=== PATIENT | female | born 1960 | race African-American/Black ===

== ENCOUNTER → 2017-06-17 | Outpatient (CLI) | payer BC ==
[2014-11-27 11:32] VITALS: BP 136/71
[~2017-06-17] MED LIST: ASPI325T8 PO; CALC-112 PO; CANA100T PO; CARV25TA2 PO; CRESTOR40 MG PO; CYAN1TAB28 PO; CYCL5TAB PO; DAPA10TA PO; EZET10TA18 PO; FISH1CAP PO; FURO-69 PO; GABA-586 PO; GABA600T2 PO; HYDR-971 PO; INSU100I11 SQ; INSU100I30 SQ; INSU100V11 SUBCUT; INSU100V8 SQ; IOHEXOL 180 MG/ML 10 ML VIAL. ONE; ISOS30TA PO; LISI20TA PO; LORA10TA68 PO; NITR0.4T SL; POTA10TA12 PO; PROVENTIL HFA6.7 GM IH; SIMV40TA3 PO; methylPREDNISolone ACETATE 40 MG/ML VIAL. ONE; methylPREDNISolone ACETATE 80 MG/ML VIAL. ONE
--- NOTE | 2017-06-17 11:31 | PAIN ---
DATE OF SERVICE: 06/17/2017 DIAGNOSES: 1. Cervical radiculopathy with cervical degenerative disk disease. 2. Lumbar radiculopathy with lumbar degenerative disk disease and post-lumbar laminectomy syndrome. HISTORY OF PRESENT ILLNESS: The patient is a 57-year-old female who returns for followup, last seen 08/19/2016. The patient had undergone caudal epidural steroid injection at that time with very good results returning now with significant reports of pain in the base of the neck, right shoulder and upper extremity as well as in the low back and left leg. Main complaint was the right shoulder, right upper extremity with some radiation of pain into this region in the shoulder and arm on the right side. It is a 10 on a scale of 10 at its worse, average about a 10 and is about 9 on at its least. The patient reports it is worse with activity using a right upper extremity with repetitive motions, reaching over her head, driving a car, picking up items or carrying things with her right arm. The patient reports it is aching, sharp, tight, constant, can be unbearable and somewhat severe. It awakens her from sleep about every 4 hours, has to reposition or take pain medicine to get out of bed and get back to sleep in order to decrease the pain. The patient reports no loss of motor function, but significant fatigability with right upper extremity as well. PAST MEDICAL HISTORY: Significant for diabetes, hypertension, myocardial infarction, lupus, skin cancer with chemotherapy treatment. PREVIOUS SURGERIES: Include tubal ligation, aortic mass removed in 1996, previous cholecystectomy, left elbow surgery and lumbar laminectomy in 2006 at L5. CURRENT MEDICATION: Updated and well documented on the patient's chart. ALLERGIES: THE PATIENT IS ALLERGIC TO IBUPROFEN, WHICH CAUSED SWELLING. FAMILY HISTORY: Significant for diabetes, heart disease, asthma, and cancer as well as strokes. 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 She reports she does not smoke and does not drink alcohol. REVIEW OF SYSTEMS: Positive for those items mentioned in history of present illness. All systems reviewed and otherwise negative. It is complete, full and well documented on the patient's chart. PHYSICAL EXAMINATION: VITAL SIGNS: Today, the patient's blood pressure 160/98, pulse 99, respirations are 18, temperature is 98.2 degrees Fahrenheit, height is 5 feet 1 inch, weight is 216 pounds. GENERAL: The patient is awake, alert, oriented, appropriate, very pleasant demeanor. HEENT: Head shows normocephalic, atraumatic. Extraocular movements are intact and symmetrical. Oral cavity shows mucous membranes moist and pink. Dentition is intact. CHEST: Shows breath sounds clear to auscultation bilaterally. HEART: Shows S1 and S2 clear. ABDOMEN: Soft, obese, nontender, nondistended. No palpable organomegaly is noted, no rebound or guarding demonstrated. BACK: Shows spine grossly midline. Slight exaggeration of thoracic kyphosis and mild flattening of lumbar lordotic curvature. Well-healed surgical scar noted. Cervical lordotic curvature is normal in appearance with palpation. Paraspinous musculature shows tenderness in the inferior aspect of the cervical paraspinous muscles, somewhat more on the right than the left into the right lateral trapezius as well as the superior medial trapezius, but no tenderness on the left side. The patient has good rotational motion of cervical spine, both laterally as well as extension and flexion without significant increase in pain. EXTREMITIES: Upper extremities show deep tendon reflexes 2+ in the biceps and triceps tendons. Motor exam is strong with home manager strength rated at 5/5 as is biceps and triceps flexion. Peripheral pulses are 2+ bilaterally. Options were discussed with the patient and the patient's old chart was reviewed as her current medication regimen and updated. Current review of systems is updated today as well. We will proceed with a cervical epidural steroid injection with fluoroscopic guidance. Risks were again discussed including, but not limited to bleeding, infection, possibility of epidural hematoma and subsequent neurologic compromise, dural puncture, headaches, spinal cord and/or nerve damage, side effects of steroid medication and poor results regarding pain control. The patient understands and wishes to proceed. The patient will return to clinic in approximately 2 weeks, was counseled as to activity level as well as side effects to be aware of. DIAGNOSES: Cervical radiculopathy with cervical degenerative disk disease. PROCEDURE: Cervical epidural steroid injection, translaminar approach at C6-C7 level using C-arm fluoroscopic guidance under sterile prep and drape using local anesthetic. MEDICATION INJECTED: A total of 120 mg of Depo-Medrol plus 5 mL of preservative-free normal saline and 2 mL of Isovue for contrast. CONDITION AT DISCHARGE: Stable. The patient tolerated procedure well, had no complications. THO LLOYD MD DR: Komal JOB#: [id number] / [id number]
== END | disposition home or self-care (01) ==
LOC: PNCL 07:58
PROVIDERS: ATTEND Anesthesiology
DX: M51.16 Intervertebral disc disorders with radiculopathy, lumbar region (principal); M96.1 Postlaminectomy syndrome, not elsewhere classified; M50.323 Other cervical disc degeneration at C6-C7 level; E11.9 Type 2 diabetes mellitus without complications; I25.2 Old myocardial infarction; I11.0 Hypertensive heart disease with heart failure; I50.9 Heart failure, unspecified; G47.30 Sleep apnea, unspecified; Z98.51 Tubal ligation status; Z90.49 Acquired absence of other specified parts of digestive tract; Z88.6 Allergy status to analgesic agent; Z87.39 Personal history of other diseases of the musculoskeletal system and connective tissue
CPT/HCPCS: 62321; J1030; J1040

== ENCOUNTER → 2017-07-03 | Outpatient (CLI) | payer BC ==
[2014-11-27 11:32] VITALS: BP 136/71
--- NOTE | 2017-07-03 08:55 | PAIN ---
DATE OF SERVICE: 07/03/2017 PROGRESS NOTE FOR PAIN CLINIC DIAGNOSES: 1. Cervical radiculopathy with cervical degenerative disk disease. 2. Lumbar radiculopathy with lumbar degenerative disk disease and lumbar post-laminectomy syndrome. HISTORY OF PRESENT ILLNESS: The patient is a 57-year-old female who returns for followup status post cervical epidural steroid injection x 1. The patient reports about 50% improvement overall in the neck and the right shoulder and upper extremity pain. The patient reports still some pain in the base of the neck and shoulder and also has pain in the low back and radiating to the left leg, but this is secondary. The patient reports pain in her neck is much better. She has increased activity with greater ease and comfort, but the pain is returning now over the past few days in the right shoulder and arm. The patient reports it as a 9 on a scale of 9 at its worst, 9 on average, is 7 at its best and is 7 today. The patient reports no new motor or sensory deficits. No new bowel or bladder incontinence. Reports it does not awaken her from sleep. She feels much better with lying down or resting or sitting. The patient reports the pain is constant, stabbing, aching, sharp and can be on and off in the lower leg on the left side. PHYSICAL EXAMINATION: VITAL SIGNS: Today, the patient's blood pressure is 173/90, pulse 82, respirations 18, temperature is 98.1 degrees Fahrenheit. Height is 5 feet 1 inch and weight is 213 pounds. GENERAL: The patient is awake, alert, oriented, appropriate and very pleasant demeanor. HEENT: Shows normocephalic and atraumatic. Extraocular movements are intact, symmetrical. Oral cavity, mucous membranes are moist and pink. Dentition is intact. NECK: Shows anterior throat supple without palpable lymphadenopathy noted. Swallow reflex is symmetrical. CHEST: Shows normal on inspection. Breath sounds clear to auscultation bilaterally. HEART: Shows S1 and S2 clear. ABDOMEN: Soft, nontender and nondistended. No palpable organomegaly. No rebound or guarding demonstrated. BACK: The patient's back shows spine grossly in midline with a normal-appearing thoracic kyphosis and lumbar lordotic curvature. Cervical lordotic curvature also normal in appearance. Cervical paraspinous musculature shows some moderate tenderness to palpation but only diffusely bilaterally with rotation shows good rotation past 45 degrees, right and left lateral as well as extension and full flexion without significant limitation or pain reported. EXTREMITIES: Upper extremities showed deep tendon reflexes 2+ in the biceps and triceps tendons. 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 Peripheral pulses are 2+ radial distribution. Options were discussed with the patient and the patient's old chart was reviewed as well as her current medication regimen updated. Current review of systems updated today as well. We will proceed with a second in series of cervical epidural steroid injection today with fluoroscopic guidance. Risks were again discussed including, but not limited to bleeding, infection, possibility of epidural hematoma, subsequent neurologic compromise, dural puncture, headaches, spinal cord and/or nerve damage, side effects of steroid medication and poor results regarding pain control. The patient understands and wishes to proceed. The patient will return to clinic in approximately 2 weeks for followup, was counseled on return appointment, activity level and side effects to be aware of. DIAGNOSIS: Cervical radiculopathy with cervical degenerative disk disease. PROCEDURE: Cervical epidural steroid injection in translaminar approach at C6-C7 level using C-arm fluoroscopic guidance under sterile prep and drape using local anesthetic. MEDICATION INJECTED: A total of 120 mg Depo-Medrol plus 5 mL of preservative-free normal saline and 2 mL of Isovue for contrast. CONDITION AT DISCHARGE: Stable. The patient tolerated procedure well, had no complications. THO LLOYD MD DR: LORETTA/jordon JOB#: [id number] / [id number]
== END | disposition home or self-care (01) ==
LOC: PNCL 07:30
PROVIDERS: ATTEND Anesthesiology
DX: M50.123 Cervical disc disorder at C6-C7 level with radiculopathy (principal); M51.16 Intervertebral disc disorders with radiculopathy, lumbar region; M96.1 Postlaminectomy syndrome, not elsewhere classified; I11.0 Hypertensive heart disease with heart failure; I50.9 Heart failure, unspecified; E11.9 Type 2 diabetes mellitus without complications; Z88.6 Allergy status to analgesic agent; Z86.69 Personal history of other diseases of the nervous system and sense organs; Z86.73 Personal history of transient ischemic attack (TIA), and cerebral infarction without residual deficits; Z90.49 Acquired absence of other specified parts of digestive tract; Z98.51 Tubal ligation status; Z87.39 Personal history of other diseases of the musculoskeletal system and connective tissue; Z86.39 Personal history of other endocrine, nutritional and metabolic disease
CPT/HCPCS: 62321; J1030; J1040

== ENCOUNTER → 2018-05-06 | Outpatient (CLI) | payer BC ==
[2014-11-27 11:32] VITALS: BP 136/71
[~2018-05-06] MED LIST changes: +ATORVASTATIN CA80 MG PO; +CLOB15OI3 TP; +ESTR30CR VG; +ISOS30TA19 PO; +LIDOCAINE 2% PF 2ML VIAL. ONE; +LOSA100T6 PO
--- NOTE | 2018-05-06 13:26 | PAIN ---
DATE OF SERVICE: 05/06/2018 DIAGNOSES: 1. Lumbar radiculopathy with lumbar degenerative disk disease and post-lumbar laminectomy syndrome. 2. Cervical radiculopathy with cervical degenerative disk disease. HISTORY OF PRESENT ILLNESS: The patient is a 57-year-old female who returns for followup, last seen 07/2017. The patient underwent cervical epidural steroid injection with very good results, about 70-80% improvement. The patient reports that since that time she is having increased pain and wishes she would come in sooner, but the pain has been most significant in the low back and bilateral lower extremities. Also, some pain in the base of the neck and right shoulder with radiating pain that is becoming more constant, but more significant and her chief complaint is low back, bilateral lower extremity pain, mostly in the posterior gluteus, posterior thighs, posterior calves, which alternates right and left being worse, but always present in both. The patient reports it is a 10 on a scale of 10 at its worst, 10 on average, 6 at its least and is a 10 today. The patient it is sharp, shooting, radiating, constant, becoming more unbearable. The patient reports it wakes her from sleep about every 4 hours or so, she has to get out of bed or take pain medication to get back to sleep. The patient reports no new motor or sensory deficits, no new bowel or bladder incontinence. Also, some pain in the neck and shoulder in the right arm, but much less compared to the low back and legs. PHYSICAL EXAMINATION: VITAL SIGNS: Show blood pressure is 172/103, pulse 96, respirations 18, temperature 98.1 degrees Fahrenheit. Height is 5 feet 1 inch, weight is 217 pounds. GENERAL: The patient is awake, alert, oriented, appropriate, very pleasant demeanor. HEENT: Head is normocephalic, atraumatic. Extraocular movements are intact and symmetrical. Oral cavity: Mucous membranes moist and pink. Dentition is intact. NECK: Shows anterior throat supple without palpable lymphadenopathy noted. Swallow reflex symmetrical. CHEST: Shows normal with inspection. Breath sounds clear to auscultation bilaterally. HEART: Shows S1, S2 clear. No murmurs auscultated. ABDOMEN: Obese, soft, nontender, nondistended. No palpable organomegaly is noted. No rebound or guarding demonstrated. BACK: Shows spine grossly in the midline. Slight increase in thoracic kyphosis and flattening of lordotic curvature with well-healed surgical scar noted in the lumbar distribution. Lumbar paraspinous muscle shows symmetrical on inspection, with palpation shows some moderate tenderness to palpation but only diffusely without significant radiation. The patient has good rotational motion of lumbar spine, both laterally as well as extension and flexion without significant difficulty as well. EXTREMITIES: Lower extremities show deep tendon reflexes at 1+ in the patellar and tendo calcaneus tendons. Motor exam is strong, 4 on a scale of 5, but equal and symmetrical dorsiflexion, extension, quadriceps and hamstring flexion. Peripheral pulses are 1+ posterior tibia. No peripheral edema is noted bilaterally. Options were discussed with the patient. The patient's old chart was reviewed as her current medication regimen updated. Current review of systems is updated today as well. We will proceed with a caudal approach epidural steroid injection today with fluoroscopic guidance. Risks were again discussed including, but not limited to bleeding, infection, possibility of epidural hematoma, subsequent neurologic compromise, dural puncture headaches, spinal cord and/or nerve damage, side effects of steroid medication and poor results regarding pain control. The patient understands and wished to proceed. The patient will return to clinic in approximately 2 weeks for followup. She was counseled as to return appointment, activity level and side effects to be aware of. DIAGNOSES: Lumbar radiculopathy with lumbar degenerative disk disease, post-lumbar laminectomy syndrome. PROCEDURE: Lumbar epidural steroid injection, caudal approach under sterile prep and drape using local anesthetic. MEDICATION INJECTED: A total of 120 mg Depo-Medrol plus 10 mL of preservative-free normal saline and 2 mL of Isovue for contrast. CONDITION AT DISCHARGE: Stable. The patient tolerated the procedure well, had no complications. THO LLOYD MD DR: LORETTA/jordon JOB#: [id number] / [id number]
== END | disposition home or self-care (01) ==
LOC: PNCL 08:22
PROVIDERS: ATTEND Anesthesiology
DX: M51.16 Intervertebral disc disorders with radiculopathy, lumbar region (principal); M96.1 Postlaminectomy syndrome, not elsewhere classified; M50.10 Cervical disc disorder with radiculopathy, unspecified cervical region; Z88.8 Allergy status to other drugs, medicaments and biological substances
CPT/HCPCS: 62323; J1030; J1040; J2001; Q9965

== ENCOUNTER → 2018-05-25 | Outpatient (CLI) | payer BC ==
[2014-11-27 11:32] VITALS: BP 136/71
[~2018-05-25] MED LIST changes: -LOSA100T6 PO; +LOSA100T7 PO
--- NOTE | 2018-05-25 11:59 | PAIN ---
DATE OF SERVICE: 05/25/2018 PROGRESS NOTE FOR PAIN CLINIC DIAGNOSES: 1. Lumbar radiculopathy with lumbar degenerative disk disease and lumbar post-laminectomy syndrome. 2. Cervical radiculopathy with cervical degenerative disk disease. HISTORY OF PRESENT ILLNESS: The patient is a 58-year-old female who returns for followup status post caudal epidural steroid injection x 1. The patient reports about 80% improvement in the low back and bilateral lower extremities. The patient reports her main complaint is neck and upper back pain. She has had some significant degenerative change in her cervical spine and has done well with a cervical epidurals in the past. The patient reports that her low back is doing much better but is in the upper back, mid back and shoulders that is most painful. The patient reports the pain in the neck and shoulders is a 10 on a scale of 10 at its worst, 8 on average, 6 at its least and is an 8 today. The patient reports it is sharp, shooting, on and off intensity, worse with activity using the upper extremities, sitting for prolonged periods. The patient reports it awakens her from sleep occasionally but not every night. The patient reports no new motor or sensory deficits and no new bowel or bladder incontinence. PHYSICAL EXAMINATION: VITAL SIGNS: The patient's blood pressure 154/87, pulse 88, respirations are 18, temperature is 98.2 degrees Fahrenheit, height is 5 feet 1 inch and weight is 217 pounds. GENERAL: The patient is awake, alert, oriented, appropriate and very pleasant demeanor. HEENT: Head shows normocephalic and atraumatic. Extraocular movements are intact and symmetrical. Oral cavity, mucous membranes are moist and pink. Dentition is intact. NECK: Shows anterior throat supple without palpable lymphadenopathy noted. Swallow reflex is symmetrical. CHEST: Shows normal on inspection. Breath sounds are clear to auscultation bilaterally. HEART: Shows S1 and S2 clear. No murmurs auscultated. ABDOMEN: Soft, nontender and nondistended. No palpable organomegaly is noted. No rebound or guarding demonstrated. BACK: Shows spine grossly in the midline. Normal appearing thoracic kyphosis and minor flattening of lumbar lordotic curvature with well-healed surgical lumbar scar. The patient's cervical paraspinous muscle shows symmetrical on inspection, on palpation shows some moderate tenderness bilaterally but only diffusely without radiation. The patient shows good rotational motion of the cervical spine with some minor guarding with extension, but not with forward flexion. Right and left lateral rotations performed past 45 degrees without significant difficulty. EXTREMITIES: The patient's upper extremities show deep tendon reflexes 2+ in the biceps, triceps tendons. 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 Peripheral pulses are 2+ in the radial distribution bilaterally. The patient's lower extremities show deep tendon reflexes are 1+ in the patellar tendon bilaterally. Motor exam is strong with 4 on a scale of 5 and equal and symmetrical dorsiflexion, extension with 1+ peripheral pulses and no edema as well. Options were discussed with the patient. The patient's old chart was reviewed as well as her current medication regimen updated. Current review of systems updated today as well. We will proceed with a cervical epidural steroid injection with fluoroscopic guidance today. Risks were again discussed including, but not limited to bleeding, infection, possibility of epidural hematoma, subsequent neurologic compromise, dural puncture, headaches, spinal cord and/or nerve damage, side effects of steroid medication and poor results regarding pain control. The patient understands and wished to proceed. The patient will return to the clinic in approximately 2 weeks for followup, was counseled to return appointment, activity level and side effects to be aware of. DIAGNOSIS: Cervical radiculopathy with cervical degenerative disk disease. PROCEDURE: Cervical epidural steroid injection, translaminar approach, C6-C7 level using C-arm fluoroscopic guidance under sterile prep and drape using local anesthetic. MEDICATION INJECTED: A total of 120 mg Depo-Medrol plus 10 mL of preservative-free normal saline and 2 mL of Isovue for contrast. CONDITION AT DISCHARGE: Stable. The patient tolerated the procedure well and had no complications. THO LLOYD MD DR: LORETTA/jordon JOB#: [id number] / [id number]
== END | disposition home or self-care (01) ==
LOC: PNCL 08:34
PROVIDERS: ATTEND Anesthesiology
DX: M50.123 Cervical disc disorder at C6-C7 level with radiculopathy (principal); M51.16 Intervertebral disc disorders with radiculopathy, lumbar region; M96.1 Postlaminectomy syndrome, not elsewhere classified; Z88.8 Allergy status to other drugs, medicaments and biological substances
CPT/HCPCS: 62321; J1030; J1040; J2001; Q9965

== ENCOUNTER → 2018-10-25 | Outpatient (CLI) | payer BC ==
[2014-11-27 11:32] VITALS: BP 136/71
[~2018-10-25] MED LIST changes: +ALBU2.5V8 IH; -GABA-586 PO; +GABA300C18 PO; -GABA600T2 PO; +GABA600T7 PO; +HYDR-3164 PO; -HYDR-971 PO; -LIDOCAINE 2% PF 2ML VIAL. ONE; +LOSA100T14 PO; -LOSA100T7 PO; -PROVENTIL HFA6.7 GM IH
--- NOTE | 2018-10-25 12:09 | PAIN ---
DATE OF SERVICE: 10/25/2018 PROGRESS NOTE FOR PAIN CLINIC DIAGNOSES: 1. Lumbar radiculopathy with lumbar degenerative disk disease and post-lumbar laminectomy syndrome. 2. Cervical radiculopathy with cervical degenerative disk disease. HISTORY OF PRESENT ILLNESS: The patient is a 58-year-old female who returns for followup status post lumbar caudal epidural steroid injections and cervical epidural steroid injection, last seen 05/25/2018. The patient did very well with about 80% improvement until the last month or so. The patient reports the pain began to return mostly in the neck and left shoulder and upper extremity. The patient reports some pain in the low back as well, but the pain in the back is better now. The main complaint is neck and left upper extremity. The patient reports it is radiating, constant, becoming more unbearable, more severe, sharp, shooting pain in the base of the neck, left shoulder posteriorly, posterior and anterior arm, throughout the upper and forearm into the wrist and hand with numbness and tingling in the fingers on the left side only. The patient reports no new injury or accident that she is aware of. The pain is a 10 on a scale of 10 at all times, average of at least and its worst is a 10 today. The patient reports it is awakening her from sleep about 2-3 times at night. She needs to reposition and get back to sleep. Initially, she was doing great with walking and work activities, household activity, traveling for several months after last injection. The pain returned about a month ago. The patient reports no new motor or sensory deficits, no new changes. PHYSICAL EXAMINATION: VITAL SIGNS: The patient's blood pressure is 186/100, pulse 96, respirations 18, temperature 98.2 degrees Fahrenheit, height is 5 feet 1 inch, weight is 219 pounds. GENERAL: The patient is awake, alert, oriented, appropriate, very pleasant demeanor. HEENT: Head is normocephalic, atraumatic. Extraocular muscles are intact and symmetrical. Oral cavity, mucous membranes are moist and pink. Dentition is intact. NECK: Shows anterior throat supple without palpable lymphadenopathy noted. Swallow reflex is symmetrical. CHEST: Shows normal with inspection. Breath sounds clear to auscultation bilaterally. HEART: Shows S1, S2 clear. No murmurs auscultated. ABDOMEN: Soft, nontender, nondistended. No palpable organomegaly is noted. No rebound or guarding demonstrated. BACK: Shows spine grossly in the midline. Normal appearing thoracic kyphosis and lumbar lordotic curvature. Cervical paraspinous muscle shows symmetrical on inspection, on palpation shows some moderate tenderness with palpation, but only diffusely. The patient has good rotational motion of cervical spine, both laterally greater than 45 degrees closer to 90 degrees, right and left lateral as well as full extension, full forward flexion without significant difficulty or pain reported. EXTREMITIES: The patient's upper extremities show deep tendon reflexes 2+ in the biceps, triceps tendons. Motor exam is strong with clinical quality manager strength rated at 5/5 bilaterally. Peripheral pulses are 2+ in radial distribution. No peripheral edema is noted. Options were discussed with the patient. The patient's old chart was reviewed as her current medication regimen updated. Current review of systems updated today as well. We will proceed with a cervical epidural steroid injection today with fluoroscopic guidance. Risks were again discussed including, but not limited to bleeding, infection, possibility of epidural hematoma and subsequent neurological compromise, dural puncture, headaches, spinal cord and/or nerve damage, side effects of steroid medication and poor results regarding pain control. The patient understands and wished to proceed. The patient will return to clinic in approximately 2 weeks for followup, was counseled as to return appointment, activity level and side effects to be aware of. DIAGNOSES: Cervical radiculopathy with cervical degenerative disk disease. PROCEDURE: Cervical epidural steroid injection, translaminar approach at C6-C7 level using C-arm fluoroscopic guidance under sterile prep and drape using local anesthetic. MEDICATION INJECTED: A total of 120 mg Depo-Medrol plus 5 mL of preservative-free normal saline and 2 mL of Isovue for contrast. CONDITION AT DISCHARGE: Stable. The patient tolerated the procedure well, had no complications. THO LLOYD MD DR: LORETTA/jordon JOB#: [id number] / [id number]
== END | disposition home or self-care (01) ==
LOC: PNCL 08:17
PROVIDERS: ATTEND Anesthesiology
DX: M50.123 Cervical disc disorder at C6-C7 level with radiculopathy (principal); M51.16 Intervertebral disc disorders with radiculopathy, lumbar region; M96.1 Postlaminectomy syndrome, not elsewhere classified; Z88.8 Allergy status to other drugs, medicaments and biological substances
CPT/HCPCS: 62321; J1030; J1040; Q9965

== ENCOUNTER → 2018-11-08 | Outpatient (CLI) | payer BC ==
[2014-11-27 11:32] VITALS: BP 136/71
--- NOTE | 2018-11-09 02:21 | PAIN ---
DATE OF SERVICE: 11/08/2018 PROGRESS NOTE FOR PAIN CLINIC DIAGNOSES: 1. Lumbar radiculopathy with lumbar degenerative disk disease, post lumbar laminectomy syndrome. 2. Cervical radiculopathy with cervical degenerative disk disease. HISTORY OF PRESENT ILLNESS: The patient is a 58-year-old female who returns for followup status post cervical epidural steroid injection x 1 on 10/25/2018. The patient reports she did very well with this with approximately 60% improvement in the left shoulder and arm. The patient reports still pain in the base of the neck and shoulder and then into the forearm, also in the posterior side with numbness and tingling in the hand. The patient reports it is sharp, also alternating with aching and dull, radiating, becoming more constant, somewhat unbearable at times with repeated use, but again, did much better after the last injection and is still taking care of the pain to about 60% level as of this date. The patient reports no new motor or sensory deficits, no new bowel or bladder incontinence. The patient reports she is sleeping better at night, increasing her distance walking, doing better with work activities as well as household activities. The patient reports her pain is 8 on a scale of 10 at its worst, a 6 at its least, 8 on average and is an 8 today. PHYSICAL EXAMINATION: VITAL SIGNS: The patient's blood pressure is 180/111, pulse 99, respirations are 18, temperature is 98.1 degrees Fahrenheit. Height is 5 feet 1 inch, weight is 212 pounds. GENERAL: The patient is awake, alert, oriented, appropriate, very pleasant demeanor. HEENT: Head shows normocephalic, atraumatic. Extraocular movements are intact and symmetrical. Oral cavity, mucous membranes are moist and pink. Dentition is intact. NECK: Shows anterior throat supple without palpable lymphadenopathy noted. Swallow reflex symmetrical. CHEST: Shows normal with inspection. Breath sounds clear to auscultation bilaterally. HEART: Shows S1, S2 clear. No murmurs auscultated. ABDOMEN: Soft, nontender, nondistended. No palpable organomegaly is noted. There is no rebound or guarding demonstrated. BACK: Shows spine grossly in the midline, normal appearing cervical lordotic curvature and thoracic kyphotic curvature. Lumbar lordotic curvature is flattened with well-healed surgical scar noted. Cervical paraspinous muscle shows symmetrical on inspection, on palpation shows some moderate tenderness, but only diffusely with palpation and without radiation. The patient shows good rotational motion of the lumbar spine both laterally as well as extension and flexion without significant difficulty or pain reported. EXTREMITIES: The patient's upper extremities show deep tendon reflexes 2+ in the biceps and triceps tendons. 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 Peripheral pulses are 2+ radial. No peripheral edema is noted. Options were discussed with the patient. The patient's old chart was reviewed as her current medication regimen updated. Current review of systems updated today as well. We will proceed with second in the series of cervical epidural steroid injection today with fluoroscopic guidance. Risks were again discussed including, but not limited to, bleeding, infection, possibility of epidural hematoma, subsequent neurological compromise, dural puncture, headaches, spinal cord and/or nerve damage, side effects of steroid medication and poor results regarding pain control. The patient understands and wished to proceed. The patient to return to clinic in approximately 2 weeks for followup, was counseled on return appointment, activity level and side effects to be aware of. DIAGNOSES: 1. Lumbar radiculopathy with lumbar degenerative disk disease and lumbar post laminectomy syndrome. 2. Cervical radiculopathy with cervical degenerative disk disease. PROCEDURE: Cervical epidural steroid injection, translaminar approach at the C6-C7 level using C-arm fluoroscopic guidance under sterile prep and drape using local anesthetic. MEDICATION INJECTED: A total of 120 mg Depo-Medrol plus 5 mL of preservative-free normal saline and 2 mL of Isovue for contrast. CONDITION AT DISCHARGE: Stable. The patient tolerated the procedure well, had no complications. THO LLOYD MD DR: LORETTA/jordon JOB#: [id number] / [id number]
== END | disposition home or self-care (01) ==
LOC: PNCL 08:46
PROVIDERS: ATTEND Anesthesiology
DX: M50.123 Cervical disc disorder at C6-C7 level with radiculopathy (principal); M51.16 Intervertebral disc disorders with radiculopathy, lumbar region; M96.1 Postlaminectomy syndrome, not elsewhere classified; Z88.8 Allergy status to other drugs, medicaments and biological substances
CPT/HCPCS: 62321; J1030; J1040; Q9965

== ENCOUNTER → 2018-11-22 | Outpatient (CLI) | payer BC ==
[2014-11-27 11:32] VITALS: BP 136/71
--- NOTE | 2018-11-22 21:44 | PAIN ---
DATE OF SERVICE: 11/22/2018 DIAGNOSES: 1. Lumbar radiculopathy with lumbar degenerative disk disease and post laminectomy syndrome. 2. Cervical radiculopathy with cervical degenerative disk disease. HISTORY OF PRESENT ILLNESS: The patient is a 58-year-old female who returns for followup status post cervical epidural steroid injection x 1 on 11/08/2018. The patient reports she did very well, about 75% improvement, with still helping, but still has some pain in the left arm, mostly in the forearm. The patient reports the shoulder and upper neck and back have improved significantly, but the left forearm is still having some tingling and radiating pain in it. The patient reports it has been 9 on a scale of 10 at its worst, 7 on an average, 6 at its least and is 7 today. The patient reports it is radiating, tingling, on and off in intensity, but worse with repetitive motions of the left arm, lifting items, otherwise she did quite a bit better. The patient reports still some pain in the low back and left lower extremity as she has had before as well, but the pain in the arm is much worse. The patient reports it awakens her from sleep about every 4-5 hours. She has been increasing her activity with household activities and driving easier, but still some pain in the left arm. The patient reports no new motor or sensory deficits, no new changes. PHYSICAL EXAMINATION: VITAL SIGNS: The patient's blood pressure is 145/86, pulse 91, respirations 16, temperature 98.6 degrees Fahrenheit, height is 5 feet 1 inch, weight is 202 pounds. GENERAL: The patient is awake, alert, oriented, appropriate, very pleasant demeanor. HEENT: Head shows normocephalic, atraumatic. Extraocular muscles are intact and symmetrical. Oral cavity, mucous membranes are moist and pink. Dentition is intact. NECK: Shows anterior throat supple without palpable lymphadenopathy noted. Swallow reflex symmetrical. CHEST: Shows normal with inspection. Breath sounds clear to auscultation bilaterally. HEART: Shows S1, S2 clear. No murmurs auscultated. ABDOMEN: Soft, nontender, nondistended. No palpable organomegaly is noted. No rebound or guarding demonstrated. BACK: Shows spine grossly in the midline. Normal-appearing thoracic kyphosis and some slight flattening of lumbar lordotic curvature. Cervical paraspinous muscle shows symmetrical on inspection, with palpation shows some moderate tenderness diffusely bilaterally, but only diffusely without radiation into the inferior aspect of the cervical paraspinous muscles as well as superior medial trapezius more on the left than the right, but again without significant radiation. The patient has full rotational motion of cervical spine, both laterally as well as extension and flexion without significant difficulty. EXTREMITIES: The patient's upper extremities show deep tendon reflexes 2+ in the biceps and triceps tendons. Motor exam is 5/5 caser up strength, bicep and tricep flexion. Options were discussed with the patient. The patient's old chart was reviewed as was her current medication regimen updated. Current review of systems updated today as well. We will proceed with a second in this series of cervical epidural steroid injection today with fluoroscopic guidance. Risks were again discussed including, but not limited to bleeding, infection, possibility of epidural hematoma, subsequent neurological compromise, dural puncture, headaches, spinal cord and/or nerve damage, side effects of steroid medication and poor results regarding pain control. The patient understands and wished to proceed. The patient to return to clinic in approximately 2 weeks for followup, was counseled as to return appointment, activity level and side effects to be aware of. DIAGNOSES: Cervical radiculopathy with cervical degenerative disk disease. PROCEDURE: Cervical epidural steroid injection, translaminar approach C6-C7 level using C-arm fluoroscopic guidance under sterile prep and drape using local anesthetic. MEDICATION INJECTED: A total of 120 mg of Depo-Medrol plus 5 mL of 0.25% bupivacaine and 2 mL of isovue for contrast. CONDITION AT DISCHARGE: Stable. The patient tolerated the procedure well, had no complications. THO LLOYD MD DR: LORETTA/jordon JOB#: [id number] / [id number]
== END | disposition home or self-care (01) ==
LOC: PNCL 09:05
PROVIDERS: ATTEND Anesthesiology
DX: M50.123 Cervical disc disorder at C6-C7 level with radiculopathy (principal); M51.16 Intervertebral disc disorders with radiculopathy, lumbar region; M96.1 Postlaminectomy syndrome, not elsewhere classified; Z88.8 Allergy status to other drugs, medicaments and biological substances
CPT/HCPCS: 62321; J1030; J1040; Q9965

== ENCOUNTER → 2018-12-06 | Outpatient (CLI) | payer BC ==
[2014-11-27 11:32] VITALS: BP 136/71
--- NOTE | 2018-12-07 03:05 | PAIN ---
DATE OF SERVICE: 12/06/2018 DIAGNOSES: 1. Lumbar radiculopathy with lumbar degenerative disk disease and lumbar post-laminectomy syndrome. 2. Cervical radiculopathy with cervical degenerative disk disease. HISTORY OF PRESENT ILLNESS: The patient is a 58-year-old female who returns for followup status post cervical epidural steroid injection x 2 with good improvement about 90% improved. Her main complaint is her low back and left lower extremity pain, which she has had in the past. We treated with caudal epidural steroid injection. She has done very well with it. The patient would like to proceed with that today. We discussed this on her last visit and again pain is main complaint in the low back, left lower extremity, posterior gluteus, posterior thigh, posterior calf and into the foot and it is a sharp, tight, shooting pain now radiating to the leg, can be more on and off in intensity, but becoming more unbearable and more severe. The patient reports no new motor or sensory deficits. The patient reports it awakens her from sleep at night occasionally, better with sitting or lying down; however, worse with standing, walking, changing positions. PHYSICAL EXAMINATION: VITAL SIGNS: The patient's blood pressure 151/89, pulse 91, respirations 18, temperature 97.7 degrees Fahrenheit, height 5 feet 1 inch, weight is 214 pounds. GENERAL: The patient is awake, alert, oriented, appropriate, very pleasant demeanor. HEENT: Head is normocephalic, atraumatic. Extraocular muscles are intact and symmetrical. Oral cavity: Mucous membranes are moist and pink. Dentition is intact. NECK: Shows anterior throat supple without palpable lymphadenopathy noted. Swallow reflex symmetrical. CHEST: Shows normal on inspection. Breath sounds clear to auscultation bilaterally. HEART: Shows S1, S2 clear. No murmurs auscultated. ABDOMEN: Obese, soft, nontender, nondistended. No palpable organomegaly is noted. No rebound or guarding demonstrated. BACK: Shows spine grossly in the midline. Slight exaggeration of thoracic kyphosis, normal cervical lordotic curvature and some minor flattening of lumbar lordotic curvature. Cervical paraspinous muscle shows symmetrical on inspection, with only very minimal tenderness in the inferior aspect of the cervical paraspinous musculature in the superior medial trapezius, full rotational motion of cervical spine is demonstrated both laterally as well as extension and flexion without difficulty. The patient's lumbar spine shows well-healed surgical scarring. Lumbar paraspinous muscle shows symmetrical on inspection, on palpation shows some moderate tenderness diffusely throughout the middle and lower distribution of paraspinous muscles, but without radiation. The patient has good rotational motion both laterally as well as extension and flexion without exacerbation of pain. EXTREMITIES: Lower extremities show deep tendon reflexes at 1+ in the patellar and tendo calcaneus tendons. Motor exam is approximately 4 on a scale of 5 with dorsiflexion, extension, quadriceps, hamstring flexion, but equal and symmetrical. Peripheral pulses are 1+ posterior tibia. No peripheral edema is noted bilaterally. Options were discussed with the patient. The patient's old chart was reviewed as her current medication regimen updated. Current review of systems updated today as well. We will proceed with a caudal approach epidural steroid injection today with fluoroscopic guidance. Risks were again discussed including, but not limited to bleeding, infection, possibility of epidural hematoma, subsequent neurological compromise, dural puncture, headaches, spinal cord and/or nerve damage, side effects of steroid medication and poor results regarding pain control. The patient understands and wished to proceed. The patient is to return to clinic in approximately 2 weeks for followup. She was counseled as to return appointment, activity level and side effects to be aware of. DIAGNOSES: Lumbar radiculopathy with lumbar degenerative disk disease, post-lumbar laminectomy syndrome. PROCEDURE: Caudal approach epidural steroid injection using C-arm fluoroscopic guidance under sterile prep and drape using local anesthetic. MEDICATION INJECTED: A total of 120 mg Depo-Medrol plus 10 mL of preservative-free normal saline and 2 mL of contrast. CONDITION AT DISCHARGE: Stable. The patient tolerated procedure well, had no complications. THO LLOYD MD DR: LORETTA/jordon JOB#: [id number] / [id number]
== END | disposition home or self-care (01) ==
LOC: PNCL 09:21
PROVIDERS: ATTEND Anesthesiology
DX: M51.16 Intervertebral disc disorders with radiculopathy, lumbar region (principal); M96.1 Postlaminectomy syndrome, not elsewhere classified; M50.10 Cervical disc disorder with radiculopathy, unspecified cervical region; Z88.8 Allergy status to other drugs, medicaments and biological substances
CPT/HCPCS: 62323; J1030; J1040; Q9965

== ENCOUNTER → 2019-03-21 | Outpatient (CLI) | payer BC ==
[2014-11-27 11:32] VITALS: BP 136/71
[~2019-03-21] MED LIST changes: -IOHEXOL 180 MG/ML 10 ML VIAL. ONE; -methylPREDNISolone ACETATE 40 MG/ML VIAL. ONE; -methylPREDNISolone ACETATE 80 MG/ML VIAL. ONE
--- NOTE | 2019-03-22 15:09 | SLEEP ---
DATE OF STUDY: 03/21/2019 ATTENDING PHYSICIAN: Dr. Puentes. REFERRING PHYSICIAN: Dr. Brooklynn Tompkins. The patient is 58 years old who weighs 220 pounds with a BMI of 42. The patient has history of sleep apnea and was referred for CPAP titration study. Result of the initial study was not available. During the night study, the patient spent 421 minutes in bed and slept for 385 minutes with a sleep efficiency of 92%. Sleep latency was 15 minutes with a REM latency of 56 minutes. Overall, sleep architecture showed normal stage 1 sleep, increased stage 2 sleep, normal slow wave and normal REM sleep. EKG monitoring revealed an average heart rate of 77 beats per minute, no sustained arrhythmias were observed. No PLMS seen. The patient was started on CPAP at 9 cm water as she was unable to tolerate lower pressure. At a pressure of 9 cm water, the patient slept for 385 minutes. The patient had supine sleep throughout and REM sleep was observed. The patient's AHI was reduced to 2 per hour and oxygen saturation remained above 88% with few spontaneous desaturations and some of them were artifacts. The patient used medium size nasal cushions. IMPRESSION: 1. Sleep apnea diagnosed previously. 2. No clinically significant PLMS. RECOMMENDATIONS: 1. CPAP at 9 cm water completely eliminated the patient's sleep apnea, should be used on a nightly basis. 2. Follow up in 4-6 weeks to assess compliance with CPAP and to document clinical improvement. 3. Weight loss is strongly advised. 4. 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 5. Caution regarding driving until symptoms of sleep apnea resolve with the use of CPAP. PRASHANTH PERKINS MD DR: BOBBY/jordon JOB#: [id number] / [id number] BROOKLYNN Lawrence MD
== END | disposition home or self-care (01) ==
LOC: RT 18:59
PROVIDERS: ATTEND Internal Medicine Pulmonary Disease
DX: G47.30 Sleep apnea, unspecified (principal); Q79.6 Ehlers-Danlos syndromes
CPT/HCPCS: 95811

== ENCOUNTER → 2019-05-12 | Outpatient (CLI) | payer BC ==
[2014-11-27 11:32] VITALS: BP 136/71
[~2019-05-12] MED LIST changes: -EZET10TA18 PO; +EZET10TA20 PO; +INSU100V11 IJ; +IOHEXOL 180 MG/ML 10 ML VIAL. ONE; +methylPREDNISolone ACETATE 40 MG/ML VIAL. ONE; +methylPREDNISolone ACETATE 80 MG/ML VIAL. ONE
--- NOTE | 2019-05-13 05:14 | PAIN ---
DATE OF SERVICE: 05/12/2019 PROGRESS NOTE FOR PAIN CLINIC DIAGNOSES: 1. Lumbar radiculopathy with lumbar degenerative disk disease and lumbar post-laminectomy syndrome. 2. Cervical radiculopathy with cervical degenerative disk disease. HISTORY OF PRESENT ILLNESS: The patient is a 58-year-old female who returns for followup status post caudal epidural steroid injections x 3, most recently seen on 12/06/2018. The patient did very well with near 100% improvement. The pain starting to return now in the low back and hips. Her chief complaint is neck and right upper extremity pain. The patient has had good success with cervical epidural steroid injections in the past, reports pain at base of the neck radiating to the right shoulder, right arm, right forearm, right hand with some numbness and tingling. Sharp, shooting pain, burning unbearable at times, on and off in intensity, but feels like a pinched nerve in her neck and shoulder. The patient reports 10 on a scale of 10 at its worst, 10 on average, 6 at its least, and is a 10 today. The patient reports no new motor or sensory deficits, no new changes, worse with raising her right hand over her head as well as repetitive motions or weightbearing with the right arm. PHYSICAL EXAMINATION: VITAL SIGNS: The patient's blood pressure 174/99, pulse 99, respirations 16, temperature 97.5 degrees Fahrenheit, height is 5 feet 1 inch and weight is 226 pounds. GENERAL: The patient is awake, alert, oriented, appropriate, very pleasant demeanor. HEENT: Head shows normocephalic and atraumatic. Extraocular movements are intact and symmetrical. Oral cavity shows mucous membranes moist and pink. Dentition is intact. NECK: Shows anterior throat supple without palpable lymphadenopathy noted. Swallow reflex symmetrical. CHEST: Shows normal on inspection. Breath sounds clear to auscultation bilaterally. HEART: Shows S1, S2 clear. No murmurs auscultated. ABDOMEN: Soft, nontender, and nondistended. No palpable organomegaly is noted. No rebound or guarding demonstrated. BACK: The patient's back shows a cervical spine grossly in the midline with normal cervical lordotic curvature, lumbar lordotic curvature, and thoracic kyphotic curvature. Cervical paraspinous muscle shows symmetrical on inspection, on palpation some moderate tenderness diffusely bilaterally, going diffusely without significant radiation. Some moderate tenderness in the superior medial aspect of the trapezius on the right side, but not the left, without specific trigger points. EXTREMITIES: The patient's upper extremities show deep tendon reflexes at 2+ in the biceps, triceps tendons. 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 Biceps and triceps flexion likewise 4/5 right, 5/5 on the left. Options were discussed with the patient. The patient's old chart was reviewed as her current medication regimen updated. Current review of systems updated today as well. We will proceed with cervical epidural steroid injection today with fluoroscopic guidance. Risks were again discussed including, but not limited to bleeding, infection, possibility of epidural hematoma and subsequent neurological compromise, dural puncture, headaches, spinal cord and/or nerve damage, side effects of steroid medication and poor results regarding pain control. The patient understands and wished to proceed. The patient will return to clinic in approximately 2 weeks for followup. She was counseled on return appointment, activity level and side effects to be aware. DIAGNOSES: Cervical radiculopathy with cervical degenerative disk disease. PROCEDURE: Cervical epidural steroid injection, translaminar approach C6-C7 level using C-arm fluoroscopic guidance under sterile prep and drape using local anesthetic. MEDICATION INJECTED: Total of 120 mg Depo-Medrol plus 5 mL of preservative-free normal saline and 2 mL of contrast. CONDITION AT DISCHARGE: Stable. The patient tolerated procedure well, had no complications. THO LLOYD MD DR: LORETTA/jordon JOB#: [id number] / [id number]
== END ==
LOC: PNCL 08:13
PROVIDERS: ATTEND Anesthesiology
DX: M50.123 Cervical disc disorder at C6-C7 level with radiculopathy (principal); M51.16 Intervertebral disc disorders with radiculopathy, lumbar region; M96.1 Postlaminectomy syndrome, not elsewhere classified
CPT/HCPCS: 62321; J1030; J1040; Q9965

== ENCOUNTER → 2019-05-26 | Outpatient (CLI) | payer BC ==
[2014-11-27 11:32] VITALS: BP 136/71
--- NOTE | 2019-05-27 03:13 | PAIN ---
DATE OF SERVICE: 05/26/2019 PROGRESS NOTE FOR PAIN CLINIC DIAGNOSES: 1. Lumbar radiculopathy with lumbar degenerative disk disease and lumbar post-laminectomy syndrome. 2. Cervical radiculopathy with cervical degenerative disk disease. HISTORY OF PRESENT ILLNESS: The patient is a 59-year-old female who returns for followup status post cervical epidural steroid injection x 1. The patient reports she did very well with about 80-90% improvement. Her chief complaint today is low back pain and bilateral lower extremity pain with radiating pain across the back into the posterior hips, right and left essentially equal bilaterally. The patient reports it is tingling and sharp and shooting in the low back, unbearable at times with walking and standing, it is on and off. The patient reports over the past week it was 9 on a scale of 10 at its worst, 9 on average and 6 at its least and is a 6 today. The patient reports no new motor or sensory deficits. Again, the neck and shoulder is doing much better with some tingling in the right hand occasionally, but only with gripping things very tightly. The patient reports otherwise doing quite well. No new motor or sensory deficits. No bowel or bladder incontinence. PHYSICAL EXAMINATION: VITAL SIGNS: The patient's blood pressure is 164/99, pulse 94, respirations 16, and temperature 98.1 degrees Fahrenheit. Height is 5 feet 1 inch and weight is 222 pounds. GENERAL: The patient is awake, alert, oriented, appropriate, very pleasant demeanor. HEENT: Shows normocephalic, atraumatic. Extraocular movements are intact and symmetrical. Oral cavity: Mucous membranes are moist and pink. Dentition is intact. NECK: Shows anterior throat supple without palpable lymphadenopathy noted. Swallow reflex symmetrical. CHEST: Shows normal on inspection. Breath sounds clear to auscultation bilaterally. HEART: Shows S1, S2 clear. No murmurs auscultated. ABDOMEN: Soft, nontender, and nondistended. No palpable organomegaly is noted. No rebound or guarding demonstrated. BACK: Shows spine grossly in the midline. Slight exaggeration of thoracic kyphosis, some minor flattening of lumbar lordotic curvature. Well-healed surgical scar noted. Lumbar paraspinous muscle shows symmetrical on inspection. On palpation shows some moderate tenderness diffusely bilaterally without radiation. The patient has good rotational motion of lumbar spine, both laterally as well as extension and flexion without difficulty. EXTREMITIES: The patient's lower extremities show deep tendon reflexes at 1+, ____ calcaneus tendons. Motor exam is strong with 5/5 dorsiflexion, extension, quadriceps and hamstring flexion and symmetrical. Peripheral pulses are 1+ posterior tibia. No peripheral edema is noted. Options were discussed with the patient. The patient's old chart was reviewed. Her current medication regimen updated. Current review of systems updated today as well. We will proceed with a caudal approach epidural steroid injection today with fluoroscopic guidance. Risks were again discussed including, but not limited to bleeding, infection, possibility of epidural hematoma, subsequent neurological compromise, dural puncture, headaches, spinal cord and/or nerve damage, side effects of steroid medication and poor results regarding pain control. The patient understands and wished to proceed. The patient will return to clinic in approximately 2 weeks for followup. She was counseled on return appointment, activity level and side effects to be aware of. DIAGNOSIS: Lumbar radiculopathy with lumbar degenerative disk disease and post-lumbar laminectomy syndrome. PROCEDURE: Lumbar epidural steroid injection, caudal approach using C-arm fluoroscopic guidance under sterile prep and drape using local anesthetic. MEDICATION INJECTED: Total of 120 mg Depo-Medrol plus 10 mL of preservative-free normal saline and 2 mL of contrast. CONDITION AT DISCHARGE: Stable. The patient tolerated procedure well, had no complications. THO LLOYD MD DR: LOERTTA/jordon JOB#: [id number] / [id number]
== END ==
LOC: PNCL 08:07
PROVIDERS: ATTEND Anesthesiology
DX: M51.16 Intervertebral disc disorders with radiculopathy, lumbar region (principal); M96.1 Postlaminectomy syndrome, not elsewhere classified; M50.10 Cervical disc disorder with radiculopathy, unspecified cervical region
CPT/HCPCS: 62323; J1030; J1040; Q9965

== ENCOUNTER → 2020-01-31 | Outpatient (CLI) | payer BC ==
[2014-11-27 11:32] VITALS: BP 136/71
[~2020-01-31] MED LIST changes: -ALBU2.5V8 IH; +ASPI-630 PO; -NITR0.4T SL; +NITR0.4T24 SL; +PROVENTIL HFA6.7 GM IH; +SIMV40TA18 PO; -SIMV40TA3 PO
--- NOTE | 2020-01-31 12:43 | PAIN ---
DATE OF SERVICE: 01/31/2020 PROGRESS NOTE FOR PAIN CLINIC DIAGNOSES: 1. Lumbar radiculopathy with lumbar degenerative disk disease and lumbar post-laminectomy syndrome. 2. Cervical radiculopathy with cervical degenerative disk disease. HISTORY OF PRESENT ILLNESS: The patient is a 59-year-old female who returns for followup status post caudal epidural steroid injection on 05/26/2019, also had a cervical epidural steroid injection prior to that on 05/12/2019. The patient reports about 80% improvement with the cervical injection, 100% with the caudal injection. The patient reports the pain has been returning, however, in the neck and the right upper extremity, especially over the last 2 months or so, the pain has been becoming more noticeable. She has been working from home, doing a lot of typing and computer work, which is causing some significant pain in the base of the neck, right shoulder, right upper extremity, right arm, into the fingers with numbness as well in the both hands, she has been dropping some items, having difficulty with fine motor movements such as buttoning shirts and so forth. The patient reports it is a sharp pain in the neck and radiating into the right upper extremity with numbness in the fingers, can be unbearable at times, worse with activity, better with resting, and supporting her arm on the arm of a chair. The patient reports it occasionally awakens her from sleep, but not every night. She reports the pain is a 10 on a scale of 10 at its worst over the past week and average and least is a 10 and is a 10 today. The patient reports no new motor or sensory deficits. Initially, she was doing much better, doing walking greater distances, doing work activities, household activities, traveling with greater ease. Now, the pain is returning again in the right upper extremity. PHYSICAL EXAMINATION: VITAL SIGNS: The patient's blood pressure is 200/120, pulse 96, respirations 16, temperature is 98.2 degrees Fahrenheit, height is 5 feet 1 inch, and weight is 222 pounds. GENERAL: The patient is awake, alert, oriented, appropriate, very pleasant demeanor. HEENT: Shows normocephalic, atraumatic. Extraocular movements are intact and symmetrical. Oral cavity: Mucous membranes moist and pink. Dentition is intact. NECK: Shows anterior throat supple without palpable lymphadenopathy noted. Swallow reflex symmetrical. CHEST: Shows normal on inspection. Breath sounds are clear to auscultation bilaterally. HEART: Shows S1, S2 clear. No murmurs auscultated. ABDOMEN: Soft, nontender, nondistended. No palpable organomegaly is noted. No rebound or guarding demonstrated. SPINE: Back shows spine grossly in the midline. Normal appearing thoracic kyphosis and minor flattening of lumbar lordotic curvature. Lumbar paraspinous muscle shows symmetrical on inspection, well-healed surgical scars noted in the lumbar distribution as well. The patient's neck shows good rotational motion of cervical spine, both laterally, it is greater than 45 degrees closer to 90 degrees as well as full extension, full forward flexion without significant increase in pain. EXTREMITIES: Upper extremities show deep tendon reflexes at 2+ in biceps, triceps tendons. Motor exam is strong with blanket folder strength, approximately 4 on a scale of 5 on the right and 5/5 on the left. Peripheral pulses are 2+ radial. No peripheral edema is noted bilaterally. Options were discussed with the patient. The patient's old chart was reviewed as her current medication regimen updated. Current review of systems updated today as well. We will proceed with a cervical epidural steroid injection today with fluoroscopic guidance. Risks were again discussed including, but not limited to bleeding, infection, possibility of epidural hematoma, subsequent neurological compromise, dural puncture, headaches, spinal cord and/or nerve damage, side effects of steroid medication and poor results regarding pain control. The patient understands and wished to proceed. The patient will return to the clinic in approximately 2 weeks for followup. She was counseled on return appointment, activity level and side effects to be aware of. DIAGNOSIS: Cervical radiculopathy with cervical degenerative disk disease. PROCEDURE: Cervical epidural steroid injection, translaminar approach at C6-C7 level using C-arm fluoroscopic guidance under sterile prep and drape using local anesthetic. MEDICATION INJECTED: A total of 120 mg Depo-Medrol plus 5 mL of preservative-free normal saline and 2 mL of contrast. CONDITION AT DISCHARGE: Stable. The patient tolerated procedure well, had no complications. THO LLOYD MD DR: LORETTA/jordon JOB#: [id number] / [id number]
== END ==
LOC: PNCL 11:13
PROVIDERS: ATTEND Anesthesiology
DX: M50.123 Cervical disc disorder at C6-C7 level with radiculopathy (principal); M51.16 Intervertebral disc disorders with radiculopathy, lumbar region; I11.0 Hypertensive heart disease with heart failure; I50.9 Heart failure, unspecified; I25.2 Old myocardial infarction; E78.00 Pure hypercholesterolemia, unspecified; I25.10 Atherosclerotic heart disease of native coronary artery without angina pectoris; E11.9 Type 2 diabetes mellitus without complications; Z85.828 Personal history of other malignant neoplasm of skin; Z86.73 Personal history of transient ischemic attack (TIA), and cerebral infarction without residual deficits; Z79.899 Other long term (current) drug therapy; Z90.49 Acquired absence of other specified parts of digestive tract; Z98.51 Tubal ligation status; Z98.890 Other specified postprocedural states
CPT/HCPCS: 62321; J1030; J1040; Q9965

== ENCOUNTER → 2020-02-14 | Outpatient (CLI) | payer BC ==
[2014-11-27 11:32] VITALS: BP 136/71
--- NOTE | 2020-02-14 12:12 | PAIN ---
DATE OF SERVICE: 02/14/2020 PROGRESS NOTE FOR PAIN CLINIC DIAGNOSES: 1. Lumbar radiculopathy with lumbar degenerative disk disease and lumbar post-laminectomy syndrome. 2. Cervical radiculopathy with cervical degenerative disk disease. HISTORY OF PRESENT ILLNESS: The patient is a 59-year-old female who returns for followup status post cervical epidural steroid injection x 1 on 01/30. The patient did very well with about a 50% improvement in her right arm. The patient reports still some pain in the arm, but mainly just from the elbow to the hand with some numbness and tingling in the thumb and first finger. The patient reports it is a 7 on a scale of 10 at its worst over the past week, 7 on average and 4 at its least and is a 4 today. The patient reports she has been increasing her activity with greater ease and comfort and sleeping better at night, it occasionally wakes her up from sleep if she sleeps on her right side, but otherwise doing much better. She has been working from home for quite a bit using a computer and video monitors with good ability with her right upper extremity and the patient reports it is about 50% better than it was. The patient reports no new motor or sensory deficits, no new bowel or bladder incontinence, describes pain as aching and tingling in the right arm, burning at times, radiating and becoming constant with increased activity, and reaching with weightbearing. PHYSICAL EXAMINATION: VITAL SIGNS: The patient's blood pressure is 150/89, pulse 99, respirations 16, temperature 98.6 degrees Fahrenheit, height is 5 feet 1 inch, weight is 213 pounds. GENERAL: The patient is awake, alert, oriented, appropriate, very pleasant demeanor. HEENT: Exam shows normocephalic, atraumatic. Extraocular movements are intact and symmetrical. Oral cavity shows mucous membranes moist and pink. Dentition is intact. NECK: Shows anterior throat supple without palpable lymphadenopathy noted. Swallow reflex symmetrical. CHEST: Shows normal on inspection, with no rales, rhonchi or wheezes auscultated. HEART: Shows S1, S2 clear. No murmurs auscultated. ABDOMEN: Obese, soft, nontender, nondistended. BACK: Shows spine grossly in the midline. Cervical paraspinous muscle shows symmetrical on inspection with normal cervical lordotic curvature. On palpation shows some moderate tenderness diffusely in the middle and lower distribution of the paraspinous muscles, slightly more on the right than the left, but present bilaterally without any atrophy, hypertrophy, without asymmetry, or without trigger points. The patient has good rotational motion of cervical spine, both laterally as well as extension and flexion without difficulty. EXTREMITIES: Upper extremities show deep tendon reflexes 2+ in the biceps and triceps tendons. 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 Peripheral pulses are 2+ radial. No peripheral edema is noted bilaterally. Options were discussed with the patient. The patient's old chart was reviewed as her current medication regimen updated. Current review of systems updated today as well. We will proceed with a second in a series of cervical epidural steroid injection today with fluoroscopic guidance. Risks were again discussed including, but not limited to bleeding, infection, possibility of epidural hematoma, subsequent neurological compromise, dural puncture, headaches, spinal cord and/or nerve damage, side effects of steroid medication and poor results regarding pain control. The patient understands and wished to proceed. The patient will return to clinic in approximately 2 weeks for followup. She was counseled as to return appointment, activity level and side effects to be aware of. DIAGNOSIS: Cervical radiculopathy with cervical degenerative disk disease. PROCEDURE: Cervical epidural steroid injection, translaminar approach at C6-C7 level using C-arm fluoroscopic guidance under sterile prep and drape using local anesthetic. MEDICATION INJECTED: A total of 120 mg Depo-Medrol plus 5 mL of preservative-free normal saline and 2 mL of contrast. CONDITION AT DISCHARGE: Stable. The patient tolerated procedure well, had no complications. THO LLOYD MD DR: LORETTA/jordon JOB#: [id number] / [id number]
== END ==
LOC: PNCL 10:28
PROVIDERS: ATTEND Anesthesiology
DX: M50.123 Cervical disc disorder at C6-C7 level with radiculopathy (principal); M51.16 Intervertebral disc disorders with radiculopathy, lumbar region; M96.1 Postlaminectomy syndrome, not elsewhere classified
CPT/HCPCS: 62321; J1030; J1040; Q9965